=== PATIENT | male | born 1965 | race Caucasian/White ===

== ENCOUNTER 2020-08-30 10:15 | Emergency (ER) | payer MEDICAID ==
[~2020-08-30] VITALS: Ht 182.9 cm; Wt 154.0 kg
[2020-08-30 12:19] LABS: BASOPHILS # (AUTO) 0.1 X10'3 (0-0.2); BASOPHILS % (AUTO) 1.2 % (0-1); EOSINOPHILS # (AUTO) 0.3 X10'3 (0-0.9); EOSINOPHILS % (AUTO) 4.3 % (0-6); HEMATOCRIT 49.4 % (42.0-52.0); HEMOGLOBIN 16.8 g/dl (14.0-17.9); LYMPHOCYTES # (AUTO) 0.9 X10'3 (1.1-4.8); LYMPHOCYTES % (AUTO) 13.3 % (21-51); MEAN CORPUSCULAR HEMOGLOBIN 30.4 PG (27.0-31.0); MEAN CORPUSCULAR HGB CONC 33.9 g/dL (33.0-36.5); MEAN CORPUSCULAR VOLUME 89.6 FL (78-98); MEAN PLATELET VOLUME 8.2 FL (7.4-10.4); MONOCYTES # (AUTO) 0.6 X10'3 (0-0.9); NEUTROPHILS # (AUTO) 5.1 X10'3 (1.8-7.7); NEUTROPHILS % (AUTO) 72.2 % (42-75); PLATELET COUNT 208 X10'3 (140-440); RED BLOOD COUNT 5.51 X10'6 (4.70-6.10); RED CELL DISTRIBUTION WIDTH 12.9 % (11.5-14.5); WHITE BLOOD COUNT 7.1 X10'3 (4.5-11.0)
[2020-08-30 12:38] LABS: ALANINE AMINOTRANSFERASE 11 U/L (12-78); ALBUMIN 3.3 G/DL (3.4-5.0); ALBUMIN/GLOBULIN RATIO 0.9 (1.1-1.5); ALKALINE PHOSPHATASE 104 IU/L (46-116); ANION GAP 9 (8-16); ASPARTATE AMINO TRANSFERASE 8 U/L (10-37); BILIRUBIN,TOTAL 0.8 MG/DL (0.1-1.0); BLOOD UREA NITROGEN 10 MG/DL (7-18); CALCIUM 8.9 MG/DL (8.5-10.1); CHLORIDE 106 MMOL/L (99-107); GLUCOSE 143 MG/DL (70-104); SODIUM 141 MMOL/L (135-145); TOTAL CARBON DIOXIDE 25.7 MMOL/L (24-32); TOTAL PROTEIN 6.8 G/DL (6.4-8.2); eGFR 78 ML/MIN
[2020-08-30] MEDS ORDERED: FURO40TA4 PO (13:38)
[2020-08-30] MEDS ORDERED: ALBU8.5H8 INH (13:38)
[2020-08-30] MEDS ORDERED: furosemide 20MG tablet PO ONE (13:50)
[2020-08-30 14:08] VITALS: BP 163/85
== END 2020-08-30 14:05 | disposition home or self-care (01) ==
LOC: ER 10:16
DX: J45.909 Unspecified asthma, uncomplicated (principal); J81.1 Chronic pulmonary edema; E11.9 Type 2 diabetes mellitus without complications; Z79.899 Other long term (current) drug therapy
CPT/HCPCS: 36415; 71046; 80053; 83880; 84484; 85025; 93005; 99285

== ENCOUNTER 2020-09-29 13:44 | Emergency (ER) | payer MEDICAID ==
[~2020-09-29] VITALS: Ht 175.3 cm; Wt 126.0 kg
[~2020-09-29 13:44] MED LIST: ALBU8.5H17 INH; FURO40TA4 PO
[2020-09-29 14:22] VITALS: BP 162/78
[2020-09-29] MEDS ORDERED: CEPH-585 PO (16:08)
[2020-09-29] MEDS ORDERED: OXYB5TAB16 PO (16:08)
== END 2020-09-29 16:29 | disposition home or self-care (01) ==
LOC: ER 13:45
DX: T83.090A Other mechanical complication of cystostomy catheter, initial encounter (principal); Z79.2 Long term (current) use of antibiotics; Z79.899 Other long term (current) drug therapy; Y84.6 Urinary catheterization as the cause of abnormal reaction of the patient, or of later complication, without mention of misadventure at the time of the procedure; Y82.8 Other medical devices associated with adverse incidents
CPT/HCPCS: 51705; 99283; 99284

== ENCOUNTER 2023-05-28 07:26 | Inpatient (IN) | payer MEDICAID ==
[~2023-05-28] VITALS: Ht 182.9 cm; Wt 168.4 kg
[~2023-05-28 07:26] MED LIST changes: +OXYB5TAB21 PO
[2023-05-28 07:45] LABS: BILIRUBIN,URINE NEGATIVE (Neg); CLARITY,URINE SLIGHTLY CLOUDY (Clear); COLOR,URINE YELLOW (Yellow); GLUCOSE, URINE >=1000 mg/dl (Neg); KETONES,URINE NEGATIVE (Neg); LEUKOCYTE ESTERASE ,URINE NEGATIVE (Neg); NITRITES, URINE POSITIVE (Neg); OCCULT BLOOD,URINE TRACE-INTACT (Neg); PH,URINE 5.5 (4.8-8.0); PROTEIN,URINE NEGATIVE (Neg); UROBILINOGEN,URINE 0.2 E.U/dL (0.2-1.0)
[2023-05-28 07:51] LABS: UA COLLECTION TYPE CLN CATCH MIDSTREAM
[2023-05-28 07:58] LABS: BACTERIA,URINE FEW /HPF (Neg); MUCUS STRANDS NONE SEEN /LPF (Neg); RBC,URINE 0-2 /HPF (0-2); SQUAMOUS EPITHELIAL CELL,UR FEW /LPF (FEW)
[2023-05-28 09:18] LABS: ALANINE AMINOTRANSFERASE 17 U/L (12-78); ALBUMIN/GLOBULIN RATIO 0.8 (1.1-1.5); ALKALINE PHOSPHATASE 140 IU/L (46-116); ANION GAP 6 (8-16); ASPARTATE AMINO TRANSFERASE 11 U/L (10-37); BILIRUBIN,TOTAL 0.7 MG/DL (0.1-1.0); BLOOD UREA NITROGEN 16 MG/DL (7-18); BUN/CREATININE RATIO 16.2 (10.0-20.0); CALCIUM 8.7 MG/DL (8.5-10.1); CHLORIDE 99 MMOL/L (99-107); CREATININE 0.99 MG/DL (0.60-1.10); GLUCOSE 351 MG/DL (70-104); LIPASE 41 U/L (16-77); POTASSIUM 3.6 MMOL/L (3.5-5.1); SODIUM 129 MMOL/L (135-145); TOTAL CARBON DIOXIDE 24.1 MMOL/L (24-32); TOTAL PROTEIN 6.7 G/DL (6.4-8.2); eCRCL 90 ML/MIN; eGFR 78 ML/MIN
[2023-05-28 09:19] LABS: BASOPHILS # (AUTO) 0.1 X10'3 (0-0.2); BASOPHILS % (AUTO) 0.7 % (0-1); EOSINOPHILS # (AUTO) 0.4 X10'3 (0-0.9); EOSINOPHILS % (AUTO) 4.1 % (0-6); HEMATOCRIT 50.3 % (42.0-52.0); HEMOGLOBIN 17.1 g/dl (14.0-17.9); LYMPHOCYTES # (AUTO) 1.3 X10'3 (1.1-4.8); LYMPHOCYTES % (AUTO) 13.3 % (21-51); MEAN CORPUSCULAR VOLUME 88.3 FL (78-98); MEAN PLATELET VOLUME 8.5 FL (7.4-10.4); MONOCYTES # (AUTO) 0.8 X10'3 (0-0.9); NEUTROPHILS # (AUTO) 7.2 X10'3 (1.8-7.7); NEUTROPHILS % (AUTO) 73.9 % (42-75); PLATELET COUNT 216 X10'3 (140-440); RED BLOOD COUNT 5.69 X10'6 (4.70-6.10); RED CELL DISTRIBUTION WIDTH 13.1 % (11.5-14.5); WHITE BLOOD COUNT 9.8 X10'3 (4.5-11.0)
[2023-05-28] MEDS: normal saline 1000ML IV soln IVB ONE (10:33)
[2023-05-28] MEDS: fentaNYL/PF 50MCG/1 ML 2ML syringe IV ONE (10:33)
[2023-05-28] MEDS: ondansetron/PF 4mg/2ml inj IV ONE ×2 (10:34→12:51)
[2023-05-28] MEDS: CefTRIAXone 2gm/D5W 50ml BAG 50 ML IV ONE (10:39)
[2023-05-28] MEDS: tamsulosin 0.4mg capsule PO STA (11:22)
[2023-05-28] MEDS: oxyCODONE/APAP 10/325mg tablet PO ONE (11:22)
[2023-05-28] MEDS: ketorolac trometh. 30mg/ml inj. IV ONE (12:18)
[2023-05-28] MEDS ORDERED: magnesium 4gm in 100ml NS 100 ML IV PRN (12:35)
[2023-05-28] MEDS ORDERED: potassium Cl 40MEQ/1/2NS 520ml 520 ML IV PRN (12:35)
[2023-05-28] MEDS ORDERED: HYDROmorphone inj. 0.5 MG/0.5 ML DISP.SYRIN IV PRN (12:35)
[2023-05-28] MEDS ORDERED: HYDROcodone/acetaminophen 5mg/325mg tablet PO PRN (12:35)
[2023-05-28] MEDS ORDERED: ondansetron/PF 4mg/2ml inj IV PRN (12:35)
[2023-05-28] MEDS ORDERED: magnesium 2GM in 50ml NS 50 ML IV PRN (12:35)
[2023-05-28] MEDS ORDERED: magnesium Cl slow-release 64mg tablet PO PRN (12:35)
[2023-05-28] MEDS ORDERED: potassium Cl 20 mEq SR tablet PO PRN ×2 (12:35)
[2023-05-28] MEDS ORDERED: HYDROcodone/acetaminophen 10/325mg tab PO PRN (12:35)
[2023-05-28] MEDS ORDERED: HYDROmorphone/PF 0.2 MG/ML SYRINGE IV PRN (12:35)
[2023-05-28] MEDS ORDERED: mag hydrox/Alum hydrox/simeth 30ml oral suspension PO PRN (12:35)
[2023-05-28] MEDS ORDERED: acetaminophen 325mg tablet PO PRN (12:35)
[2023-05-28] MEDS ORDERED: magnesium hydroxide 30ml (MOM) UD suspension PO PRN (12:35)
[2023-05-28] MEDS: normal saline 1000ml 1,000 ML IV SCH (12:54)
[2023-05-28] MEDS: docusate sod 100mg capsule PO SCH (20:00)
[2023-05-28] MEDS: K and/or MAG REPLACEMENT MC SCH (20:00)
[2023-05-29] MEDS: acetaminophen 325mg tablet PO PRN (03:10)
[2023-05-29 03:26] LABS: BASOPHILS # (AUTO) 0.1 X10'3 (0-0.2); BASOPHILS % (AUTO) 0.7 % (0-1); EOSINOPHILS # (AUTO) 0.3 X10'3 (0-0.9); EOSINOPHILS % (AUTO) 2.8 % (0-6); HEMATOCRIT 47.8 % (42.0-52.0); HEMOGLOBIN 16.4 g/dl (14.0-17.9); LYMPHOCYTES # (AUTO) 1.5 X10'3 (1.1-4.8); LYMPHOCYTES % (AUTO) 16.3 % (21-51); MEAN CORPUSCULAR HEMOGLOBIN 30.3 PG (27.0-31.0); MEAN CORPUSCULAR HGB CONC 34.3 g/dL (33.0-36.5); MEAN CORPUSCULAR VOLUME 88.3 FL (78-98); MEAN PLATELET VOLUME 8.2 FL (7.4-10.4); MONOCYTES # (AUTO) 0.9 X10'3 (0-0.9); MONOCYTES % (AUTO) 10.4 % (2-12); NEUTROPHILS # (AUTO) 6.2 X10'3 (1.8-7.7); NEUTROPHILS % (AUTO) 69.8 % (42-75); PLATELET COUNT 210 X10'3 (140-440); RED BLOOD COUNT 5.42 X10'6 (4.70-6.10); RED CELL DISTRIBUTION WIDTH 13.1 % (11.5-14.5)
[2023-05-29 03:34] LABS: APTT 25 SECONDS (22-32); PROTHROMBIN TIME 10.4 SECONDS (9.0-12.0)
[2023-05-29 03:44] LABS: ALANINE AMINOTRANSFERASE 15 U/L (12-78); ALBUMIN 2.7 G/DL (3.4-5.0); ALBUMIN/GLOBULIN RATIO 0.8 (1.1-1.5); ALKALINE PHOSPHATASE 116 IU/L (46-116); ANION GAP 7 (8-16); ASPARTATE AMINO TRANSFERASE 9 U/L (10-37); BILIRUBIN,TOTAL 0.8 MG/DL (0.1-1.0); BLOOD UREA NITROGEN 17 MG/DL (7-18); BUN/CREATININE RATIO 16.7 (10.0-20.0); CALCIUM 8.2 MG/DL (8.5-10.1); CHLORIDE 102 MMOL/L (99-107); CREATININE 1.02 MG/DL (0.60-1.10); GLUCOSE 238 MG/DL (70-104); MAGNESIUM 1.8 MG/DL (1.5-2.4); PHOSPHORUS 3.2 MG/DL (2.3-4.5); POTASSIUM 3.9 MMOL/L (3.5-5.1); SODIUM 136 MMOL/L (135-145); TOTAL PROTEIN 6.3 G/DL (6.4-8.2); eCRCL 88 ML/MIN; eGFR 75 ML/MIN
[2023-05-29 08:00] VITALS: BP 145/70; PULSE 73; RESP 16; TEMP 97.7; O2SAT 94
[2023-05-29] MEDS ORDERED: acetaminophen 325mg tablet PO PRN (08:10)
[2023-05-29] MEDS ORDERED: TAMSULOSIN PO (08:27)
[2023-05-29] MEDS ORDERED: LISI20TA28 PO (08:27)
[2023-05-29] MEDS ORDERED: ATEN50TA8 PO (08:27)
[2023-05-29] MEDS: tamsulosin 0.4mg capsule PO SCH (09:40)
[2023-05-29 10:00] VITALS: BP 149/67; PULSE 84; RESP 14; RESP 16; TEMP 98.3; O2SAT 96
[2023-05-29] MEDS: CefTRIAXone/D5W-Rocephin 1gm 50 ML IV SCH (10:41)
[2023-05-29] MEDS ORDERED: LEVO-65 PO (17:00)
== END 2023-05-29 16:35 | disposition home or self-care (01) | DRG 465 ==
LOC: ER 07:26 → ED HOLD 13:31 → ORTHO 4S 05-29 07:56
PROVIDERS: ADMIT Internal Medicine; ATTEND Internal Medicine
DX: N20.1 Calculus of ureter (principal); K76.0 Fatty (change of) liver, not elsewhere classified; E87.1 Hypo-osmolality and hyponatremia; N39.0 Urinary tract infection, site not specified; I10 Essential (primary) hypertension; N13.9 Obstructive and reflux uropathy, unspecified; J45.909 Unspecified asthma, uncomplicated; Z87.442 Personal history of urinary calculi
CPT/HCPCS: 36415; 74176; 80053; 81001; 83690; 83735; 84100; 85025; 85610; 85730; 87040; 87088; 96365; 96375; 96376; 99285; G0378; J0696; J1885; J2405; J3010; J7030